=== PATIENT | male | born 1970 | race Caucasian/White ===

== ENCOUNTER 2023-07-02 08:08 | Outpatient (AMB) | payer OTHER, SELFPAY ==
--- NOTE | 2023-07-02 09:04 | MHC.OFFWIV ---
Intake Vital Signs 07/02/23 09:09 Height 5 ft 9 in Weight 157 lb BMI 23.2 BP 128/90 H Blood Pressure Location Lt brachial Position Sitting Pulse 78 Pulse Source Pulse Oximeter Temp 97.7 F Temp Source Temporal Artery Scan Pulse Oximetry (%) 96 Oxygen Delivery Method Room Air Intake Visit Reasons: EP sore infected Intake Note: pt is here today for sore infection started 2 weeks ago Patient Tobacco Use Status: Never used Tobacco Allergies No Known Allergies Allergy (Verified 07/02/23 09:11) Do you need a note to return to daycare/school/sports/work: No HPI HPI Comments History of Present Illness Details Patient is a 53-year-old male in today for sick visit. Patient states that for the past 2 weeks he has developed what he thought was a pimple on his waistline below his navel. Patient states that over the past 2 weeks has started to grow and become very painful. Patient has been trying to drain pus out of the area in seems that the sore has been growing. Patient denies fever, denies tingling or numbness, denies incontinence. He states that he has history of getting similar cysts under his armpits. [facility] Social History Patient Tobacco Use Status: Never used Tobacco Review of Systems Const All systems reviewed & are unremarkable except as noted in HPI and below Musc Denies tingling Skin/Breast Reports furuncle (cyst suprapubic area) Neuro Denies tingling and Denies paresthesias Physical Exam Vital Signs: Last Vital Signs Temp 97.7 F 07/02/23 09:09 Pulse 78 07/02/23 09:09 BP 128/90 H 07/02/23 09:09 Pulse Ox 96 07/02/23 09:09 Oxygen Delivery Method Room Air 07/02/23 09:09 BMI result Body Mass Index 23.2 Const Other: Appearance: Alert.? Oriented X3.? No acute distress.? Head: Normocephalic, atraumatic, no step-offs or deformities ?CVS: Normal heart rate and rhythm.? Pulses normal.? Respiratory: No respiratory distress.? Breath sounds normal.? Skin: Suprapubic, +tender, puss filled postule. Neuro: Oriented X 3.? No motor deficit.? No sensory deficit. Office Procedures I&D Drain [id number] of Skin Abscess, simple All charges added?: Procedure code (CPT) selection complete Assessment & Plan Assessment & Plan (1) Epidermal cyst: Comment: Patient had I and D in office. Was able to remove some purulence drainage. Patient was also given antibiotics, Bactrim and amoxicillin for coverage. Patient has been educated on signs of worsening symptoms and when to return to the walk-in or when to present to the ED. patient was educated that if returns may need referral to General surgery Code(s): L72.0 - Epidermal cyst Plan: Take your medications as prescribed. If you were prescribed antibiotics today, it is important that you take your medication to their entirety, do not skip any doses, do not finish them early. Follow-up with your primary care provider this week. Return to the emergency department with new or worsening symptoms. Such as fevers, chills, chest pain, shortness of breath, nausea, vomiting, dizziness, headache, vision changes, lethargy In case of emergency call 911 Plan Follow-up with PCP Orders: Orders AMB Incision & Drainage Today L72.0 - Epidermal cyst Medications: New sulfamethoxazole-trimethoprim 800-160 mg (Bactrim DS) 1 tab PO Q12H 14 tabs 0RF amoxicillin 875 mg PO Q12H 14 tabs 0RF Coding Level of Care Code Est Pt Level 4 (53251) Diagnoses Epidermal cyst L72.0 CPT Codes I&D Drain - Drain 1: [id number] of Skin Abscess, simple ([id number]) Time Spent (min) 60
[2023-07-02 09:09] VITALS: BP 128/90; PULSE 78; TEMP 36.5; O2SAT 96; BMI 23.2
== END 2023-07-02 11:49 | disposition home or self-care (01) ==
PROVIDERS: PCP Internal Medicine; Visit Provider Nurse Practitioner Primary Care
DX: L72.0 Epidermal cyst (principal)
CPT/HCPCS: 10060; 99214

== ENCOUNTER 2023-07-08 08:11 | Outpatient (AMB) | payer OTHER, SELFPAY ==
[2023-07-08 08:32] VITALS: BP 130/90; PULSE 95; TEMP 36.1; O2SAT 99; BMI 23.2
--- NOTE | 2023-07-08 08:32 | AM.OFFWIN_ITS ---
Intake Vital Signs 07/08/23 08:32 Height 5 ft 9 in Weight 157 lb BMI 23.2 BP 130/90 H Blood Pressure Location Lt brachial Position Sitting Pulse 95 Pulse Source Pulse Oximeter Temp 97.0 F Temp Source Temporal Artery Scan Pulse Oximetry (%) 99 Oxygen Delivery Method Room Air Intake Visit Reasons: EP follow up infected sore Intake Note: pt is here today for F/U Patient Tobacco Use Status: Never used Tobacco Allergies No Known Allergies Allergy (Verified 07/08/23 09:06) Medication List - Last Reconciled 07/08/23 by Nahum Guzman MD sumatriptan succinate 100 mg PO DIRECTED Do you need a note to return to daycare/school/sports/work: No HPI EP follow up infected sore HPI Details 53 yr old male returns to the office for a follow up visit. Patient is only taking the bactrim. The wound is healing and he has returned to full activities. [facility] Social History Patient Tobacco Use Status: Never used Tobacco Physical Exam Vital Signs: Last Vital Signs Temp 97.0 F 07/08/23 08:32 Pulse 95 07/08/23 08:32 BP 130/90 H 07/08/23 08:32 Pulse Ox 99 07/08/23 08:32 Oxygen Delivery Method Room Air 07/08/23 08:32 BMI result Body Mass Index 23.2 Skin Other: Suprapubic area. Healing open wound, no tenderness and no discharge. Assessment & Plan Assessment & Plan (1) Epidermal cyst: Comment: Code(s): L72.0 - Epidermal cyst Plan: Wound is healing adequately. Keep the area covered and complete the antibiotic course. Coding Level of Care Code Est Pt Level 3 (13266) Diagnoses Epidermal cyst L72.0
== END 2023-07-08 09:44 | disposition home or self-care (01) ==
PROVIDERS: Visit Provider Internal Medicine
DX: L72.0 Epidermal cyst (principal)
CPT/HCPCS: 99024